=== PATIENT | male | born 1950 | race Caucasian/White ===

== ENCOUNTER 2022-10-23 19:08 | Emergency (ER) | payer MEDICARE ==
[~2022-10-23] VITALS: Ht 182.8 cm; Wt 89.4 kg
[~2022-10-23 19:08] MED LIST: AMLODIPINE5 MG PO; ASPI-COR81 M1 PO; MAG-OX 400400 MG PO; SIMVASTATIN20 MG PO; XARE15TA PO; XARE20MG PO; ZESTRIL10 MG PO
[2022-10-23 20:13] VITALS: BP 145/83
[2022-10-23] MEDS ORDERED: PERCOCET 5-3251 EACH PO (21:42)
== END 2022-10-23 22:08 | disposition home or self-care (01) ==
LOC: ED 19:08
DX: S42.141A Displaced fracture of glenoid cavity of scapula, right shoulder, initial encounter for closed fracture (principal); I10 Essential (primary) hypertension; E78.00 Pure hypercholesterolemia, unspecified; Z88.5 Allergy status to narcotic agent; Z98.890 Other specified postprocedural states; V00.121A Fall from non-in-line roller-skates, initial encounter; Y93.51 Activity, roller skating (inline) and skateboarding; Y92.89 Other specified places as the place of occurrence of the external cause; Y99.8 Other external cause status

== ENCOUNTER → 2024-03-12 | Outpatient (CLI) | payer MEDICARE ==
[~2024-03-12] MED LIST changes: +PERCOCET 5-3251 EACH PO
== END | disposition home or self-care (01) ==
LOC: RESCLI 01:43
PROVIDERS: ATTEND Internal Medicine
DX: I10 Essential (primary) hypertension (principal); I48.91 Unspecified atrial fibrillation; E78.2 Mixed hyperlipidemia; Z79.899 Other long term (current) drug therapy; Z88.8 Allergy status to other drugs, medicaments and biological substances